=== PATIENT | female | born 1985 | race Caucasian/White ===

== ENCOUNTER 2016-12-04 20:43 | Emergency (ER) | payer OTHER ==
[2016-12-04 21:03] VITALS: O2SAT 98
--- NOTE | 2016-12-04 21:24 | C.PDOC ---
History Of Present Illness 31 year old female who presents to the ER with a complaint of generalized body aches, subjective fever, and breast pain for the past 2 days. Patient reports she is currently breast feeding; she had 3 months ago. Denies cough, SOB, dysuria, or hematuria. Time Seen by Provider: 12/04/16 21:06 Chief Complaint (Nursing): Flu-like Symptoms History Per: Patient History/Exam Limitations: no limitations Onset/Duration Of Symptoms: Days Current Symptoms Are (Timing): Still Present Location Of Pain: Diffuse Myalgias Sick Contacts (Context): None Associated Symptoms: Fever (Subjective), Myalgias, Other (breast pain left) Ear Symptoms: Bilateral: None Recent travel outside of the [place]: No Past Medical History Reviewed: Historical Data, Nursing Documentation, Vital Signs Vital Signs: Last Vital Signs Temp 97.7 F 12/04/16 22:07 Pulse 86 12/04/16 22:07 Resp 16 12/04/16 22:07 BP 115/75 12/04/16 22:07 Pulse Ox 98 12/04/16 22:07 - Medical History PMH: No Chronic Diseases Surgical History: No Surg Hx Family History: States: Unknown Family Hx - Social History Hx Alcohol Use: No Hx Substance Use: No - Immunization History Hx Tetanus Toxoid Vaccination: No Hx Influenza Vaccination: No Review Of Systems Constitutional: Positive for: Fever (Subjective) Gastrointestinal: Negative for: Nausea, Vomiting Genitourinary: Negative for: Dysuria, Hematuria Musculoskeletal: Positive for: Other (Generalized body aches, breast pain) Physical Exam - Physical Exam Appears: Non-toxic Skin: Normal Color, Warm, Dry Head: Atraumatic, Normacephalic Eye(s): bilateral: Normal Inspection, EOMI Oral Mucosa: Moist Neck: Normal, Supple Chest: Symmetrical, Tenderness (Left outer inferior breast), Other (No erythema , mass, or nipple discharge) Cardiovascular: Rhythm Regular, No Murmur Respiratory: Normal Breath Sounds, No Rales, No Rhonchi, No Wheezing Gastrointestinal/Abdominal: Soft, Tenderness (Mild suprapubic), No Guarding, No Rebound Back: Normal Inspection, No CVA Tenderness Extremity: Bilateral: Atraumatic, Normal Color And Temperature, Normal ROM Neurological/Psych: Oriented x3, Normal Speech Gait: Steady ED Course And Treatment O2 Sat by Pulse Oximetry: 98 (Room air) Pulse Ox Interpretation: Normal Medical Decision Making Medical Decision Making: Impression: 31 year old female with generalized body aches, fever, malaise, breast pain Plan: * Tylenol * Urine Culture * Urinalysis * Influenza test Progress: Flu test negative. UA shows LE and WBCs. Will treat for UTI and suspect early mastitis though breast has no redness. Augmentin PO was given. Patient given verbal and written instructions to apply warm compress to breast, take antibiotics, continue breast feeding and to follow up with PCP in few days Disposition Counseled Patient/Family Regarding: Diagnosis, Need For Followup, Rx Given - Disposition Referrals: [facility] [Outside] [email or web address] [Outside] Disposition: HOME/ ROUTINE Disposition Time: 21:55 Condition: STABLE Additional Instructions: Please follow up with your primary doctor for further evaluation Take Tylenol 2-3 tabs every 6 hours for fever or any pain Take antibiotic twice a day You may apply warm compress to breast area to help with pain Return to the emergency department at any time if symptoms persist or worsen. Prescriptions: Amoxicillin/Clavulanate [Augmentin 875 MG-125 MG] 1 tab PO BID #14 tab Instructions: Mastitis (ED), Urinary Tract Infection in Women (DC) Forms: [employer] (Welsh) - POA Present On Arrival: None - Clinical Impression Clinical Impression: UTI (urinary tract infection), Mastitis - Scribe Statement The provider has reviewed the documentation as recorded by the Scribe Calderon Pham All medical record entries made by the Scribe were at my direction and personally dictated by me. I have reviewed the chart and agree that the record accurately reflects my personal performance of the history, physical exam, medical decision making, and the department course for this patient. I have also personally directed, reviewed, and agree with the discharge instructions and disposition.
[2016-12-04 21:40] LABS: RBC URINE 1 /hpf (0-3); URINE BACTERIA FEW (<OCC); URINE BILIRUBIN NEGATIVE (NEGATIVE); URINE BLOOD NEGATIVE (NEGATIVE); URINE COLOR Yellow (YELLOW); URINE GLUCOSE (UA) NORMAL (Normal); URINE KETONE NEGATIVE (NEGATIVE); URINE LEUKOCYTE ESTERASE 2+ Leu/uL (Negative); URINE PROTEIN NEGATIVE (NEGATIVE); URINE UROBILINOGEN NORMAL mg/dL (0.2-1.0); WBC URINE 18 /hpf (0-5)
[2016-12-04] MEDS ORDERED: Amoxicillin-Clav 875-125 mg Tab PO STA (21:43)
[2016-12-04] MEDS ORDERED: Amoxicillin-Clav 875-125 mg Tab PO ONE (21:49)
[2016-12-04 22:08] VITALS: BP 115/75; PULSE 86; RESP 16; TEMP 97.7
== END 2016-12-04 22:07 | disposition home or self-care (01) ==
LOC: C.ER 20:43
DX: N39.0 Urinary tract infection, site not specified (principal); N61.0 Mastitis without abscess

== ENCOUNTER 2017-05-30 18:15 | Emergency (ER) | payer OTHER ==
[2017-05-30 18:20] VITALS: BMI 29.2
[2017-05-30 18:23] VITALS: BP 133/81; PULSE 86; RESP 18; TEMP 97.7; O2SAT 100
--- NOTE | 2017-05-30 18:33 | C.PDOC ---
History Of Present Illness 32 year old female presents to ED for evaluation of sore throat, cough, and congestion since yesterday. Patient reports taking Ibuprofen at home, notes she is and therefore was not sure what other medications she could take. Patient notes her is also sick with similar symptoms. Denies chest pain, shortness of breath, ear pain, fever, chills, or headache. Time Seen by Provider: 05/30/17 18:24 Chief Complaint (Nursing): ENT Problem History Per: Patient History/Exam Limitations: no limitations Onset/Duration Of Symptoms: Days Current Symptoms Are (Timing): Still Present Location Of Pain: Throat Sick Contacts (Context): Family Member(s) () Associated Symptoms: Sore Throat, Cough, Nasal Congestion. denies: Fever, Chills, Sputum, Neck Pain, Sinus Drainage, Vomiting, Diarrhea Ear Symptoms: Bilateral: None Recent travel outside of the [place]: No Additional History Per: Patient Past Medical History Reviewed: Historical Data, Nursing Documentation, Vital Signs Vital Signs: Last Vital Signs Temp 97.7 F 05/30/17 18:20 Pulse 86 05/30/17 18:20 Resp 18 05/30/17 18:20 BP 133/81 05/30/17 18:20 Pulse Ox 100 05/30/17 19:07 Family History: States: Unknown Family Hx - Social History Hx Alcohol Use: No Hx Substance Use: No - Immunization History Hx Tetanus Toxoid Vaccination: No Hx Influenza Vaccination: No Hx Pneumococcal Vaccination: No Review Of Systems Except As Marked, All Systems Reviewed And Found Negative. Constitutional: Negative for: Fever, Chills ENT: Positive for: Nose Congestion, Throat Pain. Negative for: Ear Pain, Nose Discharge, Mouth Pain Cardiovascular: Negative for: Chest Pain, Palpitations Respiratory: Positive for: Cough. Negative for: Shortness of Breath, Sputum Physical Exam - Physical Exam Appears: Non-toxic, No Acute Distress Skin: Normal Color, Warm, Dry Head: Atraumatic, Normacephalic Eye(s): bilateral: Normal Inspection Ear(s): Bilateral: Normal Nose: Normal Oral Mucosa: Moist Tongue: Normal Appearing Lips: Normal Appearing Throat: Normal, No Erythema, No Exudate, No Drooling Neck: Normal ROM, Supple Chest: Symmetrical Cardiovascular: Rhythm Regular, No Murmur Respiratory: Normal Breath Sounds, No Rales, No Rhonchi, No Wheezing Extremity: Normal ROM, No Deformity Neurological/Psych: Oriented x3, Normal Speech ED Course And Treatment O2 Sat by Pulse Oximetry: 100 (RA) Pulse Ox Interpretation: Normal Medical Decision Making Medical Decision Making: Impression: 32 year old presents with cough, congestion and sore throat since yesterday. Plan: Imelda Tinsley Reassess, dispo Progress note: On reassessment, patient is resting comfortably, and is in no acute distress. Patient was instructed to follow up with physician/clinic in 1- 2 days for further evaluation. Disposition Counseled Patient/Family Regarding: Diagnosis, Need For Followup, Rx Given - Disposition Referrals: Osmel Cornell MD [Medical Doctor] - Disposition: HOME/ ROUTINE Disposition Time: 18:55 Condition: GOOD Additional Instructions: You have viral upper respiratory infection. Take Tylenol or Motrin alternating every 4-6 hours for Fever 100.4F or higher. Rest and drink plenty of fluids. May use cool mist humidifier or vaporizer in room. Try taking over the counter antihistamine (Claritin, Julianna, Zyrtec). Take Cough medicine as needed every 6 -8 hours. Follow up with your primary medical doctor or clinic in 1 week for further evaluation. 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 - Scribe Statement The provider has reviewed the documentation as recorded by the Scribe Sabiha Chavez All medical record entries made by the Aldenibmichael were at my direction and personally dictated by me. I have reviewed the chart and agree that the record accurately reflects my personal performance of the history, physical exam, medical decision making, and the department course for this patient. I have also personally directed, reviewed, and agree with the discharge instructions and disposition.
== END 2017-05-30 18:58 | disposition home or self-care (01) ==
LOC: C.ER 18:15
DX: J06.9 Acute upper respiratory infection, unspecified (principal)

== ENCOUNTER 2017-09-04 23:23 | Emergency (ER) | payer OTHER ==
[2017-09-04 23:24] VITALS: BMI 29.2
[2017-09-04 23:49] VITALS: TEMP 98.5; O2SAT 99
[2017-09-05] MEDS ORDERED: Sodium Chloride 0.9% 1,000 ML IV ONE (00:09)
[2017-09-05 00:36] LABS: BASO # 0.1 K/uL (0.0-0.2); BASO % 1.2 % (0.0-2.0); EOS # 0.3 K/uL (0.0-0.7); EOS % 3.6 % (0.0-4.0); HEMOGLOBIN 12.7 g/dL (11.0-16.0); LYMPH # 1.5 K/uL (1.0-4.3); LYMPH % 20.1 % (20.0-40.0); MEAN CELL VOLUME 85.8 fL (81.0-99.0); MEAN CORPUSCULAR HEMOGLOBIN 29.5 pg (27.0-31.0); MEAN CORPUSCULAR HGB CONC 34.4 g/dL (33.0-37.0); MEAN PLATELET VOLUME 9.3 fL (7.2-11.7); MONO # 0.4 K/uL (0.0-0.8); MONO % 5.6 % (0.0-10.0); NEUT # 5.1 K/uL (1.8-7.0); NEUT % 69.5 % (50.0-75.0); RBC 4.31 Mil/uL (3.80-5.20); RED CELL DISTRIBUTION WIDTH 14.3 % (11.5-14.5); WHITE BLOOD COUNT 7.4 K/uL (4.8-10.8)
[2017-09-05] MEDS ORDERED: Sodium Chloride 0.9% 1,000 ML ONE (00:38)
[2017-09-05 00:40] LABS: HCG,QUALITATIVE URINE NEGATIVE (NEGATIVE)
[2017-09-05 00:44] LABS: SQUAMOUS EPITHIAL 2 /hpf (0-5); URINE BACTERIA MOD (<OCC); URINE BILIRUBIN NEGATIVE (NEGATIVE); URINE BLOOD 1+ (NEGATIVE); URINE CLARITY Hazy (Clear); URINE COLOR Yellow (YELLOW); URINE GLUCOSE (UA) NORMAL (Normal); URINE HYALINE CAST 0-2 /lpf (0-2); URINE LEUKOCYTE ESTERASE 1+ Leu/uL (Negative); URINE PROTEIN NEGATIVE (NEGATIVE); URINE UROBILINOGEN NORMAL mg/dL (0.2-1.0)
[2017-09-05 00:48] LABS: ALB/GLOB RATIO 1.3 (1.0-2.1); ALBUMIN 4.4 g/dL (3.5-5.0); ALT/SGPT 21 U/L (9-52); AST/SGOT 16 U/L (14-36); BLOOD UREA NITROGEN 11 mg/dL (7-17); CALCIUM 9.4 mg/dl (8.6-10.4); GFR AFRICAN-AMERICAN > 60; GFR NON-AFRICAN AMERICAN > 60; LIPASE 131 U/L (23-300)
--- NOTE | 2017-09-05 00:55 | C.PDOC ---
Time Seen by Provider: 09/04/17 23:52 Chief Complaint (Nursing): Abdominal Pain History Per: Patient Onset/Duration Of Symptoms: Days (1) Current Symptoms Are (Timing): Still Present Severity: Moderate Location Of Pain/Discomfort: Suprapubic Quality Of Discomfort: Unable To Describe, "Pain" Associated Symptoms: Nausea Alleviating Factors: None Additional History Per: Prior Records Abnormal Vaginal Bleeding: No Past Medical History Reviewed: Historical Data, Nursing Documentation, Vital Signs Vital Signs: Last Vital Signs Temp 98.5 F 09/04/17 23:45 Pulse 86 09/04/17 23:45 Resp 18 09/04/17 23:45 BP 125/82 09/04/17 23:45 Pulse Ox 99 09/04/17 23:45 - Medical History PMH: No Chronic Diseases Surgical History: Family History: States: Unknown Family Hx - Social History Hx Tobacco Use: No Hx Alcohol Use: No Hx Substance Use: No - Immunization History Hx Tetanus Toxoid Vaccination: No Hx Influenza Vaccination: No Hx Pneumococcal Vaccination: No Review Of Systems Except As Marked, All Systems Reviewed And Found Negative. Constitutional: Positive for: Malaise. Negative for: Fever Cardiovascular: Negative for: Chest Pain Respiratory: Negative for: Shortness of Breath Gastrointestinal: Positive for: Nausea, Abdominal Pain. Negative for: Vomiting , Diarrhea Genitourinary: Negative for: Vaginal Discharge, Vaginal Bleeding Musculoskeletal: Negative for: Neck Pain, Back Pain Skin: Negative for: Rash Neurological: Positive for: Headache. Negative for: Weakness, Numbness Physical Exam - Physical Exam Appears: Non-toxic, No Acute Distress Skin: Normal Color, Warm, Dry, No Rash Head: Atraumatic, Normacephalic Eye(s): bilateral: Normal Inspection, PERRL, EOMI Neck: Normal ROM, Supple Cardiovascular: Rhythm Regular Respiratory: Normal Breath Sounds, No Accessory Muscle Use Gastrointestinal/Abdominal: Soft, Tenderness (suprapubic), No Distention, No Guarding, No Rebound Back: No CVA Tenderness Extremity: Normal ROM Neurological/Psych: Oriented x3, Normal Motor, Normal Sensation ED Course And Treatment - Laboratory Results Result Diagrams: 09/05/17 00:34 09/05/17 00:34 Interpretation Of Abnormal: Probable UTI Urine POC: Negative O2 Sat by Pulse Oximetry: 99 Pulse Ox Interpretation: Normal Reassessment Condition: Improved Disposition Counseled Patient/Family Regarding: Studies Performed, Diagnosis, Need For Followup, Rx Given - Disposition Disposition: HOME/ ROUTINE Disposition Time: 00:56 Condition: STABLE Additional Instructions: Drink plenty of fluids. Follow up with your doctor this week. Return to the ER if you develop fever, chills, vomiting, vaginal discharge, worsening of symptoms or if you have any other concerns. Prescriptions: Nitrofurantoin Macrocrystals [Macrobid] 1 cap PO BID #14 cap Instructions: Urinary Tract Infection, Adult (DC) - Clinical Impression Clinical Impression: UTI (urinary tract infection), Abdominal pain
[2017-09-05 01:23] VITALS: BP 118/78; PULSE 80; RESP 14
== END 2017-09-05 01:23 | disposition home or self-care (01) ==
LOC: C.ER 23:23
DX: N39.0 Urinary tract infection, site not specified (principal); R10.30 Lower abdominal pain, unspecified
CPT/HCPCS: 80053; 81001; 83690; 84703; 85025; 96361; 96374; 99283; J2765; J7030

== ENCOUNTER 2017-12-12 18:02 | Emergency (ER) | payer OTHER ==
[2017-12-12 18:02] VITALS: BMI 29.2
[2017-12-12 18:16] VITALS: BP 111/72; O2SAT 98
--- NOTE | 2017-12-12 20:05 | C.PDOC ---
History Of Present Illness 32 y/o female presents to ED c/o cold, congestion, and sore throat for the past week. Pt is also requesting to have test, notes her menstrual period is late. Otherwise, denies fever, ear pain, shortness of breath, chest pain, nausea, vomiting, abdominal pain, or any other complaints. Time Seen by Provider: 12/12/17 18:46 Chief Complaint (Nursing): Cough, Cold, Congestion History Per: Patient History/Exam Limitations: no limitations Onset/Duration Of Symptoms: Days Current Symptoms Are (Timing): Still Present Location Of Pain: Throat Sick Contacts (Context): None Associated Symptoms: Sore Throat, Nasal Congestion. denies: Fever, Neck Pain, Myalgias, Nausea, Vomiting, Diarrhea Ear Symptoms: Bilateral: None Recent travel outside of the [place]: No Additional History Per: Patient Past Medical History Reviewed: Historical Data, Nursing Documentation, Vital Signs Vital Signs: Last Vital Signs Temp 98.3 F 12/12/17 20:10 Pulse 88 12/12/17 20:10 Resp 16 12/12/17 20:10 BP 111/72 12/12/17 18:11 Pulse Ox 98 12/12/17 20:51 - Medical History PMH: Denies: Chronic Kidney Disease Surgical History: Family History: States: Unknown Family Hx - Social History Hx Tobacco Use: No Hx Alcohol Use: No Hx Substance Use: No - Immunization History Hx Tetanus Toxoid Vaccination: No Hx Influenza Vaccination: No Hx Pneumococcal Vaccination: No Review Of Systems Except As Marked, All Systems Reviewed And Found Negative. Constitutional: Negative for: Fever, Chills ENT: Positive for: Nose Congestion, Throat Pain. Negative for: Ear Pain Cardiovascular: Negative for: Chest Pain Respiratory: Positive for: Cough. Negative for: Shortness of Breath Gastrointestinal: Negative for: Nausea, Vomiting, Abdominal Pain Neurological: Negative for: Headache, Dizziness Physical Exam - Physical Exam Appears: Non-toxic, No Acute Distress Skin: Normal Color, Warm, Dry Head: Atraumatic, Normacephalic Eye(s): bilateral: Normal Inspection Ear(s): Bilateral: Normal Nose: Normal Oral Mucosa: Moist Throat: Erythema, No Exudate, No Drooling Neck: Normal ROM, Supple Lymphatic: Adenopathy (mild submandibular lymphadenopathy) Chest: Symmetrical Cardiovascular: Rhythm Regular Respiratory: No Rales, No Rhonchi, No Wheezing, Other (speaking in full sentences) Extremity: Normal ROM Neurological/Psych: Oriented x3, Normal Speech ED Course And Treatment O2 Sat by Pulse Oximetry: 98 Pulse Ox Interpretation: Normal Progress Note: UrinePreg ordered and reviewed. Pt was given Amoxicillin. Patient is being discharged home with instructions to follow up with PMD and OBGYN in 1-2 days. Disposition - Disposition Disposition: HOME/ ROUTINE Disposition Time: 20:02 Condition: STABLE Additional Instructions: Follow up with your PMD and OBGYN within 1-2 days. Return to ED if feel worse. 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 - Scribe Statement The provider has reviewed the documentation as recorded by the Scribe KP All medical record entries made by the Scribe were at my direction and personally dictated by me. I have reviewed the chart and agree that the record accurately reflects my personal performance of the history, physical exam, medical decision making, and the department course for this patient. I have also personally directed, reviewed, and agree with the discharge instructions and disposition.
[2017-12-12 20:10] VITALS: PULSE 88; RESP 16; TEMP 98.3
== END 2017-12-12 20:31 | disposition home or self-care (01) ==
LOC: C.ER 18:02
DX: J02.9 Acute pharyngitis, unspecified (principal); Z32.01 Encounter for pregnancy test, result positive